=== PATIENT | male | born 1955 | race Caucasian/White ===

== ENCOUNTER 2017-12-09 09:35 | Emergency (ER) | payer MEDICAID ==
[~2017-12-09] VITALS: Ht 167.6 cm; Wt 94.3 kg
[2017-12-09 12:14] VITALS: BP 141/74
== END 2017-12-09 12:14 | disposition home or self-care (01) ==
LOC: ED 09:35
DX: R20.2 Paresthesia of skin (principal); E11.9 Type 2 diabetes mellitus without complications; Z88.0 Allergy status to penicillin